=== PATIENT | male | born 1965 | race Caucasian/White ===

== ENCOUNTER 2017-07-27 16:16 | Emergency (ER) | payer SELFPAY ==
[2017-07-27 16:38] VITALS: TEMP 96.7
--- NOTE | 2017-07-27 16:42 | ED.PDOC ---
History of Present Illness - General Chief Complaint: Cardiovascular Problem Stated Complaint: headache, nausea, htn Time Seen by Provider: 07/27/17 16:32 Source: patient Exam Limitations: no limitations - History of Present Illness Initial Comments: Patient presents with a headache for one hour. It is left temporal and non- radiating. Throbbing in nature. No exacerbating nor alleviating factors. No previous episodes that have been this bad although he has had "smaller ones". Associated with nausea. Patient has hx of htn, on Coreg, and is being treated with Ceftin for bronchitis. Timing/Duration: 1 hour Severity: severe Improving Factors: nothing Worsening Factors: nothing Associated Symptoms: other - as in HPI Allergies/Adverse Reactions: Allergies NO KNOWN ALLERGY Allergy (Verified 07/27/17 16:36) Home Medications: Ambulatory Orders Atorvastatin Calcium [Lipitor] 40 mg PO DAILY 07/27/17 Benzonatate Perles [Tessalon Perles] 100 mg PO TID #20 cap 07/27/17 Carvedilol [Coreg] 6.25 mg PO BID 07/27/17 Cefdinir [Omnicef] 300 mg PO [id number] 07/27/17 Review of Systems - Review of Systems Constitutional: States: no symptoms reported EENTM: States: no symptoms reported Respiratory: States: no symptoms reported Cardiology: States: no symptoms reported Genitourinary: States: see HPI Musculoskeletal: States: no symptoms reported Skin: States: no symptoms reported Neurological: States: see HPI Endocrine: States: no symptoms reported Hematologic/Lymphatic: States: no symptoms reported Past Medical History (General) - Patient Medical History Hx Seizures: No Hx Stroke: No Hx Dementia: No Hx Asthma: No Hx of COPD: No Hx Cardiac Disorders: No Hx Congestive Heart Failure: No Hx Pacemaker: No Hx Hypertension: Yes Hx Thyroid Disease: No Hx Diabetes: No Hx Gastroesophageal Reflux: No Hx Renal Disease: No Hx of HIV: No Hx MRSA: No Surgical History: no surgical history - Vaccination History Hx Influenza Vaccination: No Family Medical History - Family History Mother Family History: Unknown Physical Exam - Physical Exam General Appearance: Alert Eye Exam: bilateral normal Ears, Nose, Throat: hearing grossly normal, normal ENT inspection Neck: non-tender, full range of motion, supple Respiratory: chest non-tender, wheezing - expirtory wheezing in the upper lung razo Cardiovascular/Chest: normal peripheral pulses, regular rate, rhythm, no edema Gastrointestinal/Abdominal: normal bowel sounds, non tender Back Exam: no CVA tenderness Extremity: normal inspection 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 Patient given Toradol 30 mg IV x one for the headache. Also given a duonebs for the wheezing. Patient is on an excellent medication for bronchitis and for prevention and treatment of pneumonia. Laboratory Tests 07/27/17 07/27/17 07/27/17 16:53 16:53 16:53 WBC 8.4 RBC 5.12 Hgb 14.9 Hct 43.4 MCV 84.8 MCH 29.1 MCHC 34.3 RDW 13.3 Plt Count 243 MPV 6.9 L Absolute Neuts (auto) 5.70 Absolute Lymphs (auto) 1.60 Absolute Monos (auto) 0.60 Absolute Eos (auto) 0.50 H Absolute Basos (auto) 0.00 Neutrophils % 68.2 Lymphocytes % 18.8 L Monocytes % 6.9 Eosinophils % 5.7 H Basophils % 0.4 PT 11.1 INR 0.980 PTT (SP) Sodium 138 Potassium 3.8 Chloride 101 Carbon Dioxide 28 Anion Gap 12.8 BUN 19 H Creatinine 1.19 BUN/Creatinine Ratio 16.0 Random Glucose 110 H Serum Osmolality 278.6 Calcium 9.7 Total Bilirubin 0.7 AST 23 ALT 28 Alkaline Phosphatase 66 Serum Total Protein 7.2 Albumin 4.4 Globulin 2.8 Albumin/Globulin Ratio 1.6 07/27/17 16:53 WBC RBC Hgb Hct MCV MCH MCHC RDW Plt Count MPV Absolute Neuts (auto) Absolute Lymphs (auto) Absolute Monos (auto) Absolute Eos (auto) Absolute Basos (auto) Neutrophils % Lymphocytes % Monocytes % Eosinophils % Basophils % PT INR PTT (SP) 30.6 Sodium Potassium Chloride Carbon Dioxide Anion Gap BUN Creatinine BUN/Creatinine Ratio Random Glucose Serum Osmolality Calcium Total Bilirubin AST ALT Alkaline Phosphatase Serum Total Protein Albumin Globulin Albumin/Globulin Ratio Departure - Departure Clinical Impression: Headache Disposition: Discharge to Home or Self Care Condition: Good Departure Forms: ED Discharge - Pt. Copy, Patient Portal Self Enrollment Diet: other - as instructed by your physician Referrals: Osorio Boo III, MD [Active Staff] - 1-2 Weeks Prescriptions: Benzonatate Perles [Tessalon Perles] 100 mg PO TID #20 cap Home Medications: Ambulatory Orders Atorvastatin Calcium [Lipitor] 40 mg PO DAILY 07/27/17 Benzonatate Perles [Tessalon Perles] 100 mg PO TID #20 cap 07/27/17 Carvedilol [Coreg] 6.25 mg PO BID 07/27/17 Cefdinir [Omnicef] 300 mg PO [id number] 07/27/17
--- NOTE | 2017-07-27 17:16 | CT ---
EXAM DESCRIPTION: Head CLINICAL HISTORY: worst headache of his life, hypertension COMPARISON: None available TECHNIQUE: Non contrast cranial CT.This exam was performed according to our departmental dose-optimization program, which includes automated exposure control, adjustment of the mA and/or kV according to patient size and/or use of iterative reconstruction technique. FINDINGS: Mucosal sinus disease is observed in the left maxillary antrum. Ethmoid sinus air cell disease is also observed. The sphenoid sinuses and the frontal sinuses are clear. The mastoid sinus air cells are clear. The orbits as imaged are normal. No intracranial hemorrhage is observed. The ventricles and cisternal spaces are within range of normal. No mass lesions or mass effect are observed. IMPRESSION: Mucosal sinus disease is observed in the left maxillary antrum and ethmoid sinus air cells. No acute brain parenchymal pathology is detected. Electronically signed by: Osorio Cooper MD 07/27/2017 5:14 PM CDT
[2017-07-27] MEDS: IPRATROPIUM/ALBUTEROL 3 ML VIAL NEB ONE (17:23)
[2017-07-27] MEDS ORDERED: KETOROLAC TROMETHAMINE INJ 30 MG/ML VIAL IV ONE (17:44)
[2017-07-27 18:38] VITALS: BP 165/106; O2SAT 98
== END 2017-07-27 18:05 | disposition home or self-care (01) ==
LOC: ER 16:16
DX: R51 Headache (principal); I10 Essential (primary) hypertension; Z79.899 Other long term (current) drug therapy
CPT/HCPCS: 36415; 70450; 80053; 85025; 85610; 85730; 94640; J1885; J7620

== ENCOUNTER 2019-11-12 04:37 | Emergency (ER) | payer SELFPAY ==
[2019-11-12 04:54] VITALS: O2SAT 97
[2019-11-12] MEDS ORDERED: ONDANSETRON INJ 4 MG/2 ML VIAL IV ONE (05:13)
[2019-11-12] MEDS ORDERED: SODIUM CHLORIDE 0.9% (FLUSH) 10 ML SYG IV PRN (05:13)
[2019-11-12] MEDS ORDERED: ASPIRIN TABLET 325 MG TAB PO ONE (05:13)
[2019-11-12] MEDS: hydrALAZINE HCl 20 MG/ML VIAL IV ONE ×2 (05:20→05:41)
--- NOTE | 2019-11-12 05:23 | ED.PDOC ---
History of Present Illness - General Chief Complaint: Headache Stated Complaint: HTNvictorina Time Seen by Provider: 11/12/19 05:13 Source: patient, RN notes reviewed, Vital Signs reviewed, family - Exam Limitations: no limitations - History of Present Illness Initial Comments: Patient is a 54-year-old male who has a history of hypertension and presents early this morning with complaints of waking from sleep with a worsening headache. He took his blood pressure at home and was noted to be in the 180s/120s. Patient states the headache is throbbing in nature. It is worse when he lays flat it is better when he sits up the headache is improving with decreasing his blood pressure. It is of severe intensity. Patient denies any photophobia or blurry vision. Patient also complains of some transient chest pain with associated shortness of breath. The chest pain only lasts for a second or 2 at a time and resolves on its own. Nothing seems to bring it on or make it go away. The pain is sharp and stabbing like needles. The intensity is low. Patient denies any diaphoresis, nausea, vomiting or diarrhea. Timing/Duration: 1-3 hours Severity: moderate Associated Symptoms: chest pain, headaches, shortness of breath Allergies/Adverse Reactions: Allergies NO KNOWN ALLERGY Allergy (Verified 07/27/17 16:36) Home Medications: Ambulatory Orders Amlodipine Besylate 5 mg PO DAILY 11/12/19 Enalapril Maleate 20 mg PO DAILY 11/12/19 Montelukast [Singulair] 10 mg PO DAILY 11/12/19 Review of Systems - Review of Systems Constitutional: States: no symptoms reported, see HPI EENTM: States: no symptoms reported Respiratory: States: see HPI Cardiology: States: chest pain - Sharp and stabbing Gastrointestinal/Abdominal: States: no symptoms reported Genitourinary: States: no symptoms reported Musculoskeletal: States: no symptoms reported Skin: States: no symptoms reported Neurological: States: see HPI, headache Endocrine: States: no symptoms reported Hematologic/Lymphatic: States: no symptoms reported All other Systems: Reviewed and Negative Past Medical History (General) - Patient Medical History Hx Seizures: No Hx Stroke: No Hx Dementia: No Hx Asthma: No Hx of COPD: No Hx Cardiac Disorders: No Hx Congestive Heart Failure: No Hx Pacemaker: No Hx Hypertension: Yes Hx Thyroid Disease: No Hx Diabetes: No Hx Gastroesophageal Reflux: No Hx Renal Disease: No Hx of HIV: No Hx MRSA: No Surgical History: appendectomy - Vaccination History Hx Influenza Vaccination: No Family Medical History - Family History Mother Family History: Unknown Physical Exam - Physical Exam General Appearance: Alert, Comfortable, Well Developed, Well Groomed, Well Hydrated, Well Nourished Eye Exam: bilateral normal Ears, Nose, Throat: hearing grossly normal, normal ENT inspection, normal pharynx Neck: non-tender, full range of motion, supple, normal inspection Respiratory: chest non-tender, lungs clear, normal breath sounds, no respiratory distress, no accessory muscle use Cardiovascular/Chest: normal peripheral pulses, regular rate, rhythm, no edema, no gallop, no JVD, no murmur Peripheral Pulses: radial,right: 2+, radial,left: 2+ Gastrointestinal/Abdominal: normal bowel sounds, non tender, soft, no organomegaly, no pulsatile mass Back Exam: normal inspection, no CVA tenderness, no vertebral tenderness Extremity: normal range of motion, non-tender, normal inspection, no pedal edema 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 11/12/19 06:13 Patient symptoms have resolved after given IV hydralazine for blood pressure control. Patient denies any chest pain at this time. His shortness of breath has improved also. More importantly headache is completely resolved on its own. Plan on discharge home with follow-up with PCP of discussed this plan of care with the patient and his and they voiced understanding and agreement. Lex Goldberg M.D. #[id number] - Results/Orders Results/Orders: EKG performed on 12 November 2019 at at 044 7 hours: Sinus bradycardia 57 bpm, normal axis deviation, no ST or T wave changes, otherwise normal EKG. No comparative EKG. 11/12/19 05:10 B-TYPE NATRIURETIC PEPTIDE/BNP Stat CARDIAC PANEL,ER Stat HEPATIC FUNCTION PANEL Stat 11/12/19 05:13 IV Care:Saline Lock per Protoc QSHIFT Telemetry .ONCE Sodium Chloride 0.9% (Flush) [Saline Flush Syringe] 10 ml IV PRN PRN EKG Stat Pulse Ox Stat 11/12/19 05:14 EKG Assessment ONCE Pulse Oximetry Assessment DAILY Laboratory Results - last 24 hr 11/12/19 05:10 WBC 7.2 RBC 4.85 Hgb 14.1 Hct 42.1 MCV 86.8 MCH 29.1 MCHC 33.5 RDW 13.6 Plt Count 258 MPV 7.2 L Absolute Neuts (auto) 5.20 Absolute Lymphs (auto) 1.50 Absolute Monos (auto) 0.40 Absolute Eos (auto) 0.10 Absolute Basos (auto) 0.00 Neutrophils % 71.6 Lymphocytes % 20.4 Monocytes % 6.0 Eosinophils % 1.7 Basophils % 0.3 Sodium 139 Potassium 3.6 Chloride 103 Carbon Dioxide 26 Anion Gap 13.6 BUN 21 H Creatinine 1.54 H BUN/Creatinine Ratio 13.6 Random Glucose 114 H Serum Osmolality 281.4 Calcium 9.5 Magnesium 2.1 Total Bilirubin 1.0 Direct Bilirubin 0.1 Indirect Bilirubin 0.9 H AST 24 ALT 23 Alkaline Phosphatase 53 Creatine Kinase 155 CK-MB (CK-2) 1.7 CK-MB (CK-2) % Not Reportable Troponin I < 0.02 B-Natriuretic Peptide 12.2 Serum Total Protein 7.2 Albumin 4.3 Chest single view on 11/12/2019 CLINICAL INDICATION: Chest pain COMPARISON: None FINDINGS: Mild cardiomegaly is noted. There is slight elevation of the right hemidiaphragm. The lungs are clear. Hilar and mediastinal contours are within normal limits. Pulmonary vascularity is within normal limits. No bony abnormality is noted. IMPRESSION: No acute disease. Electronically signed by: Chi Peters 11/12/2019 5:42 AM Departure - Departure Clinical Impression: Accelerated hypertension Headache Qualifiers: Headache type: unspecified Headache chronicity pattern: acute headache Intractability: not intractable Qualified Code(s): R51 - Headache Chest pain Qualifiers: Chest pain type: unspecified Qualified Code(s): R07.9 - Chest pain, unspecified Time of Disposition: 06:16 Disposition: Discharge to Home or Self Care Condition: Good Departure Forms: ED Discharge - Pt. Copy, Patient Portal Self Enrollment Instructions: DI for Headache, High Blood Pressure (DC), Malignant Hypertension (DC) Referrals: Soto Tavarez MD [Primary Care Provider] - 1-5 Days Home Medications: Ambulatory Orders Amlodipine Besylate 5 mg PO DAILY 11/12/19 Enalapril Maleate 20 mg PO DAILY 11/12/19 Montelukast [Singulair] 10 mg PO DAILY 11/12/19
--- NOTE | 2019-11-12 05:43 | RAD ---
Chest single view on 11/12/2019 CLINICAL INDICATION: Chest pain COMPARISON: None FINDINGS: Mild cardiomegaly is noted. There is slight elevation of the right hemidiaphragm. The lungs are clear. Hilar and mediastinal contours are within normal limits. Pulmonary vascularity is within normal limits. No bony abnormality is noted. IMPRESSION: No acute disease. Electronically signed by: Chi Peters 11/12/2019 5:42 AM [employer]EWALS SPECIALIST
[2019-11-12 06:57] VITALS: BP 146/87; TEMP 98
== END 2019-11-12 06:50 | disposition home or self-care (01) ==
LOC: ER 04:37
DX: I10 Essential (primary) hypertension (principal); R51 Headache; R07.9 Chest pain, unspecified; R06.02 Shortness of breath; R00.1 Bradycardia, unspecified; Z79.899 Other long term (current) drug therapy
CPT/HCPCS: 71045; 80048; 80076; 82550; 82553; 83880; 84484; 85025; 85610; 85730; 93005; J0360; J2405

== ENCOUNTER 2020-05-21 09:20 | Emergency (ER) | payer SELFPAY ==
[2020-05-21] MEDS ORDERED: SODIUM CHLORIDE 0.9% (FLUSH) 10 ML SYG IV PRN (09:37)
[2020-05-21] MEDS ORDERED: SODIUM CHLORIDE 0.9% 1000ML 1,000 ML IVS PRN (09:37)
--- NOTE | 2020-05-21 09:37 | ED.PDOC ---
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 Patient states he was working with 480 V current, states his hand grasped a wire and held on for approximately 10 to 15 seconds. He denies any loss of consciousness. He does have a small abrasion over the dorsal aspect of the right fourth finger. Last DTaP less than 2 years ago. No previous cardiac history. Allergies/Adverse Reactions: Allergies NO KNOWN ALLERGY Allergy (Verified 07/27/17 16:36) Home Medications: Ambulatory Orders Amlodipine Besylate 5 mg PO DAILY 11/12/19 Enalapril Maleate 20 mg PO DAILY 11/12/19 Montelukast [Singulair] 10 mg PO DAILY 11/12/19 Review of Systems - Review of Systems Constitutional: Denies: chills, fever EENTM: Denies: double vision, ear discharge, nose congestion, throat swelling, mouth swelling Respiratory: Denies: cough, orthopnea, short of breath, wheezing Cardiology: States: chest pain. Denies: edema, palpitations, syncope Gastrointestinal/Abdominal: Denies: constipation, diarrhea, nausea, vomiting Genitourinary: Denies: dysuria, hematuria Musculoskeletal: States: back pain, muscle pain, muscle stiffness, neck pain. Denies: joint pain Skin: States: lesions. Denies: rash Neurological: States: headache. Denies: paresthesia, tingling, weakness Past Medical History (General) - Patient Medical History Hx Seizures: No Hx Stroke: No Hx Dementia: No Hx Asthma: No Hx of COPD: No Hx Cardiac Disorders: No Hx Congestive Heart Failure: No Hx Pacemaker: No Hx Hypertension: Yes Hx Thyroid Disease: No Hx Diabetes: No Hx Gastroesophageal Reflux: No Hx Renal Disease: No Hx of HIV: No Hx MRSA: No Surgical History: no surgical history - Vaccination History Hx Tetanus, Diphtheria Vaccination: No Hx Influenza Vaccination: No Hx Pneumococcal Vaccination: No - Social History Hx Alcohol Use: No - Activities of Daily Living Hospice Agency (if applicable):: None - Female History Patient is a Female of Child Bearing Age (10 -59 yrs old): No Family Medical History - Family History Mother Family History: Unknown Physical Exam - Physical Exam General Appearance: Alert, Comfortable, Obese Eye Exam: bilateral normal Ears, Nose, Throat: hearing grossly normal, normal ENT inspection, normal pharynx Neck: full range of motion, supple, normal inspection Respiratory: lungs clear, normal breath sounds, no respiratory distress, no accessory muscle use Cardiovascular/Chest: normal peripheral pulses, regular rate, rhythm, no edema, no gallop, no JVD, no murmur Peripheral Pulses: radial,right: 2+, radial,left: 2+, popliteal,right: 2+, popliteal,left: 2+, dorsalis pedis,right: 2+, dorsalis pedis,left: 2+ Gastrointestinal/Abdominal: non tender, soft Back Exam: normal inspection, no CVA tenderness, no vertebral tenderness Extremity: normal range of motion, non-tender, normal inspection 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 Heart rate in the mid 50s. Patient states he feels much better. He says his neck feels stiff, but has no pain with range of motion. No chest pain, no shortness of breath, no dizziness. Discussed his asymptomatic bradycardia on repeat EKG and cardiac monitoring. I explained that I do not feel this requires admission at this time, but will give referral to cardiology for outpatient work-up next week and strict warnings given to return the emergency room for shortness of breath, syncope, worsening chest pain, or any other concerns. Patient declined any pain medication in the emergency department or as a prescription to go home with. DDX: Electrocution, cardiac injury, rhabdomyolysis, arrhythmia MDM: Patient was shocked with low voltage, 480 V AC. Patient reports he was shocked when he reached into the fuse box and current arced onto his right hand ring. He reports 10 to 15 seconds of tetany where he could not let go of the fuse box. Initial EKG was normal, labs are normal, including CK. Troponins negative x2. His repeat EKG showed a sinus bradycardia in the 40s without any other arrhythmia. Patient is asymptomatic. No dizziness, no changes in mental status. Heart rate came up into the mid 50s at the time of discharge. He was observed in the emergency department for approximately 3 hours without any clinical worsening.He was feeling much better with no respiratory or other cardiac symptoms. I do not feel his bradycardia requires admission at this time, will refer to cardiology on an outpatient basis. Strict warnings given to return for worsening. Riki Stock DO [facility] #[id number] - Results/Orders Results/Orders: EKG interpreted by me at 0929. Sinus bradycardia, rate of 54, normal axis, normal intervals, no ST segment elevations or depressions Repeat EKG interpreted by me at 11:45 AM. Sinus bradycardia, rate of 44, normal axis, normal intervals, no ST segment elevations or depressions EXAM DESCRIPTION: Chest,1 View CLINICAL HISTORY: 54 years Male, trauma, chest pain COMPARISON: November 12, 2019 FINDINGS: One view/radiograph Similar cardiomegaly. No pulmonary vascular congestion. There is no pneumothorax or pleural effusion. The lungs are clear bilaterally. The soft tissues are unremarkable. No acute osseous findings. IMPRESSION: No acute cardiopulmonary abnormality. Electronically signed by: Fady Mejia MD 05/21/2020 10:13 AM 05/21/20 09:37 Sodium Chloride 0.9% (Flush) [Saline Flush Syringe] 10 ml IV PRN PRN Sodium Chloride 0.9% 1000ML [Ns 1000 ml] 1,000 ml IVS .QD EKG Stat URINALYSIS Stat 05/21/20 11:30 EKG STAT 05/22/20 09:00 Pulse Ox Daily Laboratory Results - last 24 hr 05/21/20 05/21/20 05/21/20 08:45 08:45 08:45 WBC 8.1 RBC 4.94 Hgb 14.5 Hct 42.3 MCV 85.5 MCH 29.3 MCHC 34.3 RDW 13.3 Plt Count 271 MPV 6.9 L Absolute Neuts (auto) 6.00 Absolute Lymphs (auto) 1.50 Absolute Monos (auto) 0.50 Absolute Eos (auto) 0.10 Absolute Basos (auto) 0.00 Neutrophils % 74.4 Lymphocytes % 18.2 L Monocytes % 5.6 Eosinophils % 1.4 Basophils % 0.4 Sodium 139 Potassium 3.9 Chloride 107 Carbon Dioxide 26 Anion Gap 9.9 L BUN 19 H Creatinine 1.29 BUN/Creatinine Ratio 14.7 Random Glucose 112 H Serum Osmolality 280.5 Calcium 9.1 Total Bilirubin 1.1 H AST 19 ALT 25 Alkaline Phosphatase 62 Creatine Kinase 98 CK-MB (CK-2) 1.3 CK-MB (CK-2) % Not Reportable Troponin I < 0.02 Serum Total Protein 7.4 Albumin 4.4 Globulin 3.0 Albumin/Globulin Ratio 1.5 Ethyl Alcohol < 5.40 05/21/20 11:35 WBC RBC Hgb Hct MCV MCH MCHC RDW Plt Count MPV Absolute Neuts (auto) Absolute Lymphs (auto) Absolute Monos (auto) Absolute Eos (auto) Absolute Basos (auto) Neutrophils % Lymphocytes % Monocytes % Eosinophils % Basophils % Sodium Potassium Chloride Carbon Dioxide Anion Gap BUN Creatinine BUN/Creatinine Ratio Random Glucose Serum Osmolality Calcium Total Bilirubin AST ALT Alkaline Phosphatase Creatine Kinase CK-MB (CK-2) CK-MB (CK-2) % Troponin I < 0.02 Serum Total Protein Albumin Globulin Albumin/Globulin Ratio Ethyl Alcohol Departure - Departure Clinical Impression: Sinus bradycardia Electrocution and nonfatal effects of electric current Qualifiers: Encounter type: initial encounter Qualified Code(s): T75.4XXA - Electrocution, initial encounter Disposition: Discharge to Home or Self Care Condition: Good Departure Forms: ED Discharge - Pt. Copy, Patient Portal Self Enrollment Diet: resume usual diet Activity: increase activity as tolerated Referrals: Soto Tavarez MD [Primary Care Provider] - 1-5 Days SWATHI ETIENNE MD [Consulting Staff] - 1-5 Days Home Medications: Ambulatory Orders Amlodipine Besylate 5 mg PO DAILY 11/12/19 Enalapril Maleate 20 mg PO DAILY 11/12/19 Montelukast [Singulair] 10 mg PO DAILY 11/12/19 Additional Instructions: Return to the emergency room immediately for worsening chest pain, shortness of breath, dizziness, syncope, or any other concerns.
[2020-05-21] MEDS ORDERED: MORPHINE SULFATE INJ 10 MG/ML VIAL IV ONE (09:38)
[2020-05-21] MEDS ORDERED: ONDANSETRON INJ 4 MG/2 ML VIAL IV ONE (09:38)
--- NOTE | 2020-05-21 10:15 | RAD ---
EXAM DESCRIPTION: Chest,1 View CLINICAL HISTORY: 54 years Male, trauma, chest pain COMPARISON: November 12, 2019 FINDINGS: One view/radiograph Similar cardiomegaly. No pulmonary vascular congestion. There is no pneumothorax or pleural effusion. The lungs are clear bilaterally. The soft tissues are unremarkable. No acute osseous findings. IMPRESSION: No acute cardiopulmonary abnormality. Electronically signed by: Fady Mejia MD 05/21/2020 10:13 AM CDT
[2020-05-21 13:05] VITALS: BP 149/91; TEMP 98.2; O2SAT 95
== END 2020-05-21 13:00 | disposition home or self-care (01) ==
LOC: ER 09:20
DX: T75.4XXA Electrocution, initial encounter (principal); S60.414A Abrasion of right ring finger, initial encounter; R00.1 Bradycardia, unspecified; I10 Essential (primary) hypertension; W86.1XXA Exposure to industrial wiring, appliances and electrical machinery, initial encounter; Z79.899 Other long term (current) drug therapy; Y99.0 Civilian activity done for income or pay; Y92.69 Other specified industrial and construction area as the place of occurrence of the external cause
CPT/HCPCS: 36415; 71045; 80053; 80320; 82550; 82553; 84484; 85025; 93005; A4216; J2270; J2405; J7030